=== PATIENT | female | born 1955 | race Caucasian/White ===

== ENCOUNTER → 2022-11-02 08:50 | Outpatient (CLI) | payer SELFPAY ==
--- NOTE | 2022-11-02 | DI.US.S_ITS ---
LIMITED ULTRASOUND OF RIGHT BREAST AND AXILLA: 11/02/2022 CLINICAL: Patient returns today to evaluate 2 focal asymmetries in the right breast. Comparison is made to exams dated: 11/02/2022 mammogram - [facility] and 06/05/2022 mammogram - outside facility. Color flow ultrasound of the right breast 9-10 o'clock, and axilla regions was performed. Santiago scale images of the real-time examination were reviewed. There is a 0.6 cm x 0.6 cm x 0.4 cm oval mass with a circumscribed margin in the right breast at 9 o'clock middle depth 2 cm from the nipple. This oval mass is hypoechoic with posterior acoustic enhancement. This correlates with mammography findings. Color flow imaging demonstrates that there is no vascularity present. There also is a benign 0.5 cm x 0.5 cm x 0.1 cm oval lymph node with a circumscribed margin in the right breast at 10 o'clock posterior depth 9 cm from the nipple. This oval lymph node displays fatty hilum. This correlates with mammography findings. No significant abnormalities were seen sonographically in the right axilla. IMPRESSION: PROBABLY BENIGN The 0.6 cm x 0.6 cm x 0.4 cm oval mass in the right breast at 9 o'clock middle depth has a differential diagnosis of a complicated cyst or a lymph node and is probably benign. The 0.5 cm x 0.5 cm x 0.1 cm oval lymph node in the right breast at 10 o'clock posterior depth is benign. A follow-up right ultrasound in 6 months is recommended to demonstrate stability. This exam was interpreted at Station ID: [id number]. Electronically Signed By: Lm mason/yudith:11/02/2022 15:49:40 letter sent: Followup Recommended Ultrasound BI-RADS: 3 Probably benign
--- NOTE | 2022-11-02 | DI.ECHO.S_ITS ---
[place] +---------+ [facility] +---------+ : : [address] : : : : [id number] : : : : Phone: [phone]+ Echocardiogram Report + + :Name: FABIANO HERNANDEZ Study Date: 11/02/2022 Height: 66 in : :[facility] ReadingLocation: Weight: 125 lb : : Gender: Female BSA: 1.6 m2 : :: 1955 Age: 67 yrs BP: 148/84 mmHg: :Reason For Study: Murmur : :Ordering Physician: ALMAS, : :SABINA Browning Performed By: Soni Roe : :Referring: SABINA COBURN : + + Interpretation Summary The left ventricle is moderate-severely dilated. The ejection fraction is estimated to be 25-30%. There is no obvious LV thrombus. Except basal anterolateral, basal inferior lateral wall and apex which have relatively better contractility, rest of the LV segments moderate to severely hypokinetic. Inferior wall and inferior septum almost akinetic. The right ventricle is normal in size and function. There is mild to moderate mitral regurgitation. The IVC is of normal diameter and collapses greater than 50% with a sniff. This suggests a low right atrial pressure of 3 mm Hg. There is mild luminal irregularity and echogenicity in the abdominal aorta, suggestive of aortic atherosclerotic disease. There is an anterior echo-free space consistent with a fat pad. However small pericardial effusion anterior to free wall of right ventricle cannot be ruled out. No evidence of tamponade. Procedure: A two-dimensional transthoracic echocardiogram with color flow and Doppler was performed. The study quality was technically good. The patient was in sinus bradycardia with heart rates between 49-58 bpm during the exam. Left Ventricle: The left ventricle is moderate-severely dilated. There is normal left ventricular wall thickness. There is no thrombus. The ejection fraction is estimated to be 25-30%. Except basal anterolateral, basal inferior lateral wall and apex, rest of the LV segments moderate to severely hypokinetic. Inferior wall and inferior septum almost akinetic. Diastolic parameters suggest a relaxation abnormality of the left ventricle, consistent with probable normal filling pressures. Right Ventricle: The right ventricle is normal in size and function. Atria: The left atrial size is normal. Right atrial size is normal. There is no Doppler evidence for an interatrial shunt. Mitral Valve: The mitral valve leaflets appear mildly thickened, but open well. There is mild to moderate mitral regurgitation. Aortic Valve: The aortic valve is trileaflet. The aortic valve opens well. There is no aortic valve stenosis. There is trace aortic regurgitation. Tricuspid Valve: The tricuspid valve is normal in structure and function. The right ventricular systolic pressure is estimated to be at least 19.3 mmHg based on an estimated right atrial pressure of 3 mm Hg. There is trace tricuspid regurgitation. Pulmonic Valve: The pulmonic valve leaflets are thin and pliable; valve motion is normal. There is trace pulmonic regurgitation. Great Vessels: The aortic root is normal size. The ascending aorta is normal in size. There is mild luminal irregularity and echogenicity in the abdominal aorta, suggestive of aortic atherosclerotic disease. The IVC is of normal diameter and collapses greater than 50% with a sniff. This suggests a low right atrial pressure of 3 mm Hg. Pericardium/ Pleura There is an anterior echo-free space consistent with a fat pad. There is no pleural effusion. MMode/2D Measurements & Calculations LVIDd: 6.1 cm LVOT diam: 1.9 cm LVIDs: 5.0 cm Ao root diam: 3.2 cm FS: 18.0 % asc Aorta Diam: 3.0 cm EPSS: 1.8 cm IVSd: 0.80 cm LVPWd: 0.80 cm LV valente. diameter/BSA (cm/m^2): 3.7 LV sys. diameter/BSA (cm/m^2): 3.1 LA dimension: 3.5 cm RA long axis: 4.3 cm LA A2 area: 19.6 cm2 RA area: 10.9 cm2 LA A4 area: 15.1 cm2 RA vol: 23.7 ml LA length (vol): 4.8 cm RA : 14.5 ml/m2 LA vol: 52.6 ml IVC diam: 1.7 cm LA vol index: 32.1 ml/m2 RVD1 (basal): 2.6 cm LVLs ap4: 7.0 cm LVLd ap2: 7.3 cm TAPSE_phl: 2.3 cm LVLs ap2: 6.9 cm Doppler Measurements & Calculations Ao V2 max: 132.0 cm/sec LVOT Max Silvano: 103.0 cm/sec Ao V2 mean: 92.8 cm/sec LV V1 max P.2 mmHg Ao max P.0 mmHg LV V1 VTI: 25.2 cm Ao mean P.0 mmHg ERICK(I,D): 2.2 cm2 Ao V2 VTI: 32.2 cm ERICK(V,D): 2.2 cm2 sev ratio: 0.78 ERICK indexed to BSA (cm^2/m^2): 1.4 MV E max silvano: 54.8 cm/sec TR max silvano: 202.0 cm/sec MV A max silvano: 92.6 cm/sec TR max P.3 mmHg MV E/A: 0.59 PA V2 max: 71.0 cm/sec Med Peak E' Silvano: 5.7 cm/sec PA V2 mean: 52.3 cm/sec E/E' med: 9.6 PA mean P.0 mmHg Lat Peak E' Silvano: 6.2 cm/sec E/E' lat: 8.9 E/e' average: 9.2 MV dec time: 0.38 sec MVA(VTI): 1.7 cm2 MV V2 mean: 51.7 cm/sec SV(LVOT): 71.4 ml MV mean P.0 mmHg MV V2 VTI: 40.9 cm AV VR_phl: 0.78 MV P1/2t-pr_phl: 110.0 msec ERICK(VTI)/BSA_phl: 1.4 Reading Physician:06:46 PM
--- NOTE | 2022-11-02 | DI.MG.S_ITS ---
UNILATERAL RIGHT DIGITAL DIAGNOSTIC MAMMOGRAM 3D/2D WITH ADDITIONAL VIEWS: 11/02/2022 CLINICAL: Additional evaluation requested from prior study. Comparison is made to exam dated: 06/05/2022 mammogram - outside facility. There are scattered areas of fibroglandular density in the right breast (category b / 25%-50% glandular tissue). There is a 6 mm oval low density focal asymmetry with a circumscribed margin in the right breast at 9 o'clock middle depth. This is seen in additional views. There also is a 5 mm oval equal density focal asymmetry with a circumscribed margin in the right breast at 10 o'clock posterior depth. This is seen in additional views. No other significant masses or calcifications are seen in the breast. IMPRESSION: INCOMPLETE: NEEDS ADDITIONAL IMAGING EVALUATION The 6 mm oval low density focal asymmetry in the right breast at 9 o'clock middle depth is indeterminate. An ultrasound is recommended. The 5 mm oval equal density focal asymmetry in the right breast at 10 o'clock posterior depth is indeterminate. An ultrasound is recommended. Based on the Tyrer Cuzick model (a risk assessment model) the patient's lifetime risk is 6.2% and her 10 year risk is 3.6%. According to the ACR, ACS, and NCCN guidelines, an annual breast MRI exam along with mammogram is recommended if the patient's lifetime risk is 20% or greater. This exam was interpreted at Station ID: [id number]. NOTE: For mammograms, a report in lay terms will be sent to the patient. Approximately 15% of breast malignancies will not be visualized mammographically. In the management of a palpable breast mass, a negative mammogram must not discourage biopsy of a clinically suspicious lesion. Electronically Signed By: Lm mason/yudith:11/02/2022 15:46:42 ACR BI-RADS Category 0: Incomplete [id number]
== END ==
PROVIDERS: PCP Physician Assistant; Referring Provider Family Medicine; Visit Provider Family Medicine
DX: R92.8 Other abnormal and inconclusive findings on diagnostic imaging of breast (principal); N63.15 Unspecified lump in the right breast, overlapping quadrants; I34.0 Nonrheumatic mitral (valve) insufficiency; R01.1 Cardiac murmur, unspecified
CPT/HCPCS: 76642; 77065; 93306; G0279